=== PATIENT | male | born 1945 ===

== ENCOUNTER 2021-06-07 11:53 | Day surgery (SDC) | payer MEDICARE ==
[2021-06-05 11:29] VITALS: BMI 24.9
[~2021-06-07 11:53] MED LIST: ALBUTEROL NEB (CONC) 2.5 MG/0.5 ML INHALATION ONE; LACTATED RINGERS 1,000 ML IV SCH; LIDOCAINE 2% (PF) 20 MG/ML 5 ML VIAL INHALATION ONE; LIDOCAINE VISCOUS 300 MG/15 ML CUP MUCOUS MEM ONE; SODIUM CHLORIDE 0.9% 1,000 ML IV SCH
[2021-06-07] MEDS ORDERED: NEOSTIGMINE 1 MG/ML 10 ML VIAL ONE (13:20)
[2021-06-07] MEDS ORDERED: SUCCINYLCHOLINE CHLORIDE 100 MG/5 ML SYR IV ONE (13:20)
[2021-06-07] MEDS ORDERED: ETOMIDATE 2 MG/ML 10 ML VIAL ONE (13:20)
[2021-06-07] MEDS ORDERED: GLYCOPYRROLATE 0.2 MG/ML 2 ML VIAL ONE (13:20)
[2021-06-07] MEDS ORDERED: LIDOCAINE 1% INJ 10MG/ML (20 ML MDV) ONE (13:20)
[2021-06-07] MEDS ORDERED: ROCURONIUM 10 MG/ML (5 ML VIAL) IV ONE (13:20)
--- NOTE | 2021-06-07 13:31 | CT ---
EXAMINATION TYPE: CT Chest jose r Interiano Protocol DATE OF EXAM: 06/07/2021 COMPARISON: CT chest 05/22/2021 HISTORY: pre bronch navigational, abnormal CT, lung masses CT DLP: 627 mGycm Automated exposure control for dose reduction was used. Helical imaging through the chest for procedu re planning purposes. FINDINGS: Multiple masses are present in the right upper lobe similar to prior CT, there are subcentimeter nodu les bilaterally, axial image #23 the subpleural location posterior laterally right upper lobe, subple ural location left upper lobe axial image #26, nodules are present in the left upper lobe axial image 19 anteriorly, axial image #17, right lower lobe axial image #41 not seen on prior exam. The cavitar y mass in the right lower lobe is again seen. There is no pleural or pericardial effusion. Subpleural lesion also present in the left lower lobe at the costophrenic angle as well as left lower lobe in t he perihilar location. There is retrocaval pretracheal adenopathy, extensive coronary artery calcific ation. Cholelithiasis is noted. Cystic area is present along the small bowel on the left, left kidney is not seen. Lack of contrast could compromise sensitivity. Atheromatous changes are present within the aor ta. No axillary or supraclavicular adenopathy is evident. IMPRESSION: THERE ARE NEW PULMONARY NODULES PRESENT SUGGESTING METASTATIC DISEASE. EXAM PERFORMED FOR PROCEDURE P LOLY PURPOSES.
[2021-06-07 14:33] VITALS: TEMP 96.9
--- NOTE | 2021-06-07 14:40 | P.PCN ---
Date of Procedure: 06/07/21 Preoperative Diagnosis: Lung mass Postoperative Diagnosis: 1 RUL mass 2 LLL mass Procedure(s) Performed: 1 navigational bronchoscopy 2 TBBX , [place], BAL of the LLL mass 3 TBBX , [place], of the RUL mass Anesthesia: IVÁNA Surgeon: Myles Fnuez Estimated Blood Loss (ml): 0 Pathology: other Condition: stable Disposition: same day Operative Findings: Patient was brought into the operating room/endoscopy suite. There E pads were applied to his chest. A computed tomography scan was done using Cuff-Prote[employer] protocol and the various masses in the left lower lobe and the right upper lobe were identified and mapped. The information was uploaded into the [employer]ational [employer] and the procedure was started. The patient was intubated and placed on a mechanical ventilator in the usual fashion. Intubation process was done by anesthesia successfully. The patient was intubated by #8 orotracheal tube. Following that, the flexible bronchoscope was introduced and an airway inspection was done. Distal trachea, bilateral mainstem bronchi, right upper lobe bronchus, bronchus intermedius, right middle lobe bronchus and right lower lobe bronchus and the various segments of the right in addition to the left mainstem bronchus, left upper lobe bronchus and left lower lobe bronchus and the various segments on the left were all identified and inspected and evaluated. There was some endobronchial irregularity and extrinsic narrowing of the posterior segment of the left lower lobe bronchus. The rest of the airways were all patent and within normal limits. At this point, a navigational forceps was introduced and appropriate calibrations were done using the main jame and the secondary jame on the left as reference points. Under navigational guidance, the forceps was then directed to the posterior segment of the left lower lobe and multiple transbronchial biopsies of the left lower lobe mass was done with good accuracy. Following that, navigation guided transbronchial brushing of the left lower lobe mass was done. A bronchial lavage of the left lower lobe was also done which resulted of 60 disease of fluid was infused and 20 mL of fluid was aspirated. Following that, the navigational forceps was directed to the right upper lobe apical segment and under navigational guidance, transbronchial biopsies of the right apical mass was done. Multiple biopsies were obtained. Navigational guided transbronchial brushing of the right upper lobe mass was done. The CT was completely completed without any complication. Therapeutic it was suctioning was done. Bronchoscope was removed. Patient was extubated and following that the patient was transferred to recovery in stable condition.
--- NOTE | 2021-06-07 15:07 | XR ---
EXAMINATION TYPE: XR chest 1V portable DATE OF EXAM: 06/07/2021 COMPARISON: CT chest same date HISTORY: Status post biopsies of the lung TECHNIQUE: Single frontal view of the chest is obtained. FINDINGS: Patient is rotated. There is no evident pneumothorax or pleural effusion. Patient's lung m asses bilaterally are again noted. Cardiac mediastinal silhouette within normal limits accounting for technique. IMPRESSION: No evident complication status post lung biopsy.
[2021-06-07] MEDS ORDERED: ALBUTEROL NEBULIZED 2.5 MG/3 ML INHALATION STA (15:46)
[2021-06-07 15:51] VITALS: RESP 20
[2021-06-07 15:53] VITALS: BP 107/65
[2021-06-07 16:04] VITALS: PULSE 83
== END 2021-06-07 16:23 | disposition home or self-care (01) ==
LOC: ORWHC2ENDO 11:53
PROVIDERS: ATTEND Internal Medicine Critical Care Medicine
DX: C34.32 Malignant neoplasm of lower lobe, left bronchus or lung (principal); C34.11 Malignant neoplasm of upper lobe, right bronchus or lung; D53.9 Nutritional anemia, unspecified; E78.00 Pure hypercholesterolemia, unspecified; K21.9 Gastro-esophageal reflux disease without esophagitis; Z11.1 Encounter for screening for respiratory tuberculosis; I73.9 Peripheral vascular disease, unspecified; F17.210 Nicotine dependence, cigarettes, uncomplicated; I25.10 Atherosclerotic heart disease of native coronary artery without angina pectoris; I10 Essential (primary) hypertension; I12.9 Hypertensive chronic kidney disease with stage 1 through stage 4 chronic kidney disease, or unspecified chronic kidney disease; N18.9 Chronic kidney disease, unspecified; Z90.5 Acquired absence of kidney; Z52.4 Kidney donor; R73.03 Prediabetes; Z98.890 Other specified postprocedural states; Z95.820 Peripheral vascular angioplasty status with implants and grafts; Z83.1 Family history of other infectious and parasitic diseases; Z83.79 Family history of other diseases of the digestive system; Z97.2 Presence of dental prosthetic device (complete) (partial); Z79.02 Long term (current) use of antithrombotics/antiplatelets; Z79.899 Other long term (current) drug therapy; Z91.013 Allergy to seafood; Z88.0 Allergy status to penicillin; Z91.048 Other nonmedicinal substance allergy status; Z91.041 Radiographic dye allergy status; Z91.09 Other allergy status, other than to drugs and biological substances
CPT/HCPCS: 94640; 87798 ×3; 87496; 87498; 87529; 88104; 88305; 88173; 88342; 87252; 87502; 87634; 88341; 87070; 87205; 87116; 87102; 87206; 71045; 71250; 31628; 31632; 31623; 31624; 31627; J2710; J2001; J0330; 31625; 31629; 87075

== ENCOUNTER → 2021-06-09 | Outpatient (CLI) | payer MEDICARE ==
--- NOTE | 2021-06-13 11:32 | PE ---
Nuclear medicine PET/CT HISTORY: Solitary pulmonary nodule, initial Patient received 10.3 mCi F-18 FDG intravenously and delayed scanning was performed from the skull ba se to the mid thighs. Localization and attenuation correction CT scan was performed. Correlation to CT chest 05/22/2021, 06/07/2021. Average mediastinal uptake is SUV 1.2. Average liver uptake SUV is 1.7. Chest and neck: Mass in the left lower lobe, right lower lobe, multiple masses in the right upper lob e again noted with associated hypermetabolic uptake SUV 4.22, 9.5 on the right, 12.3 in the left lowe r lobe, 6.4 the right lower lobe. Supraclavicular adenopathy present on the right with associated hyp ermetabolic uptake, SUV is 3.5. Retrocaval pretracheal adenopathy is present, SUV 3.8. Right hilar ad enopathy with associated uptake, SUV is 5.7. Multiple nodules subcentimeter in size does not show lauren reciable uptake. No pleural or pericardial effusion. ABDOMEN: There is no evident adrenal mass or uptake. Cystic area along the mesentery in the left show s no uptake. 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 Right kidney within normal limits. There is gallstone pres ent. No evident liver mass or retroperitoneal adenopathy. Postprocedural changes are noted at the aor ta which is ectatic distally, there are atheromatous changes. No free fluid or pelvic adenopathy. Pos top changes noted to the groins, iliac arteries. Osseous structures: There is a focus of hypermetabolic uptake present within the left ilium SUV 6. Ab normal uptake in the proximal left femur, SUV 3.6 Degenerative disc changes and facet arthropathy not ed in the lumbar spine. Uptake in the right maxilla may be due to dental disease on the right. IMPRESSION: Metastatic disease.
== END | disposition home or self-care (01) ==
LOC: RADPETMAIN 14:17
PROVIDERS: ATTEND Internal Medicine Critical Care Medicine
DX: C34.31 Malignant neoplasm of lower lobe, right bronchus or lung (principal); C34.32 Malignant neoplasm of lower lobe, left bronchus or lung
CPT/HCPCS: 78815; A9552

== ENCOUNTER → 2021-06-15 | Outpatient (CLI) | payer MEDICARE ==
--- NOTE | 2021-06-15 17:09 | XR ---
Result: History: Pain with history of metastatic lung cancer. Comparison: PET/CT 06/09/2021. Technique: 2 views of the left femur. Findings: Bone mineralization is appropriate for age. There is no acute fracture or dislocation. Alignment is anatomic. No destructive osseous lesions seen . The joint spaces are grossly preserved. Atherosclerotic calcifications present. Impression: Known hypermetabolic lesions in the left iliac and proximal femur are radiographically occult. Otherwise no acute osseous abnormality.
== END | disposition home or self-care (01) ==
LOC: RADXRMAIN 16:28
PROVIDERS: ATTEND Internal Medicine Hematology & Oncology
DX: M89.8X5 Other specified disorders of bone, thigh (principal); Z71.3 Dietary counseling and surveillance

== ENCOUNTER → 2021-09-08 | Outpatient (CLI) | payer MEDICARE ==
--- NOTE | 2021-09-12 20:25 | PE ---
EXAMINATION TYPE: PET CT fusion skull to thigh DATE OF EXAM: 09/08/2021 CLINICAL HISTORY: 75-year-old male C3 4.32, lung cancer restaging. Recent chemotherapy last week. Nona gnosed May 2021. TECHNIQUE: Following the intravenous administration of 10.42 mCi of F-18 FDG, whole body images are performed from the skull base to the midthigh. Images are reviewed on the computer in the coronal, axial, and sagittal planes. Reconstructed rotating images are created on independent workstation and reviewed on the computer. A localization and attenuation correction CT is performed in conjunction with the PET scan. Glucose level: 143 mg/dL Injection site: Right hand COMPARISON: 06/09/2021. FINDINGS: PET: Redemonstrated focus of increased activity anterior right maxilla likely relating to periodontal dise ase. Right supraclavicular lymph node is larger now with uptake of 6.7 versus 3.5, previously. Nodule anterior right apex is smaller 1.4 cm versus 2.7 cm, previously and with decreasing uptake. However, otherwise, numerous bilateral pulmonary nodules and masses are increasing in both size, numb er, and degree of hypermetabolism. Largest right lower lobe measuring 6.6 cm, relatively similar. Right upper lobe masses max SUV 6.8 versus 9.5, previously Medial basilar right lower lobe, max SUV 5.7 versus 6.4, previously. Dominant left lower lobe mass shows uptake of 10.7 versus 12.3, previously. Right hilar node versus max SUV 4.4 versus 5.7, previously. Average liver SUV 1.2. Adrenal glands appear clear. Mild uptake at the level of the patient's small midline supraumbilical hernia now containing a nonobs tructed small bowel loop, likely reactive. Otherwise, physiologic FDG uptake within the abdomen. New lytic destruction left iliac bone with soft tissue component measuring up to 3.9 cm, increased DSOUZA V, now 8.1 versus 6.0, previously. Partially visualized abnormal hypermetabolism within the proximal left femoral shaft, max SUV 4.6 olu maximus 3.6, previously. ATTENUATION CORRECTION CT: Mild mucosal thickening right maxillary sinus. Orotracheal call appear clear. CAD was extensive three-vessel coronary artery calcifications. Heart borderline in size. Moderate ath erosclerotic calcifications throughout the thoracic aorta. Aneurysm thoracic aorta measuring up to 3. 7 cm. Pulmonary arterial hypertension with enlarged caliber to 3.1 cm. 1.6 cm gallstone. Aortobifemoral bypass graft. Abdominal aortic aneurysm at the level of the kidneys up to 4.1 cm. Chronically hydronephrotic left kidney redemonstrated. Small supraumbilical hernia redemonstrated but now containing a nonobstructed small bowel loop. Mild- to-moderate stool. Scattered mild diverticulosis. Some contrast material accumulating within the partially distended bladder. No abnormal fluid collect ion the pelvis or pelvic lymphadenopathy. Facet arthropathy lumbar spine with grade 1 anterolisthesis L4-L5. IMPRESSION: 1. Disease progression (compared to 06/09/2021) with new and enlarging hypermetabolic bilateral pulmona ry nodules and masses. Enlarging metastatic right supraclavicular lymph node. 2. Previous left iliac bone lesion now associated with a 3.9 cm destructive soft tissue component wit h increasing hypermetabolism. 3. The known proximal left femoral shaft lesion is only partially seen, located at the edge of the sc an, but also has increasing metabolic activity. 4. A few of the dominant lung masses which were previously present show slight decreased, but still i ntense uptake. One lesion in the right apex has improved. These findings may reflect some interval pa rtial treatment response prior to overall disease progression.
== END | disposition home or self-care (01) ==
LOC: RADPETMAIN 15:35
PROVIDERS: ATTEND Internal Medicine Hematology & Oncology
DX: C34.32 Malignant neoplasm of lower lobe, left bronchus or lung (principal)
CPT/HCPCS: 78815; A9552